=== PATIENT | female | born 1970 | race African-American/Black ===

== ENCOUNTER 2017-08-30 01:44 | Inpatient (IN) | payer MEDICAID, OTHER ==
[~2017-08-30] VITALS: Ht 142.2 cm; Wt 103.9 kg
[~2017-08-30 01:44] MED LIST: GABA-529 PO; OLAN5TAB2 PO
[2017-08-30] MEDS ORDERED: LORazepam 2 MG TABLET PO ONE (03:30)
[2017-08-30] MEDS ORDERED: OLANZapine 5 MG TABLET PO ONE (03:30)
[2017-08-30] MEDS ORDERED: BACITRACIN 0.9 GM PACKET OINTMENT TP ONE (03:30)
[2017-08-30 04:17] LABS: AMPHET/METH SCREEN,URINE POSITIVE (NEGATIVE); BARBITURATE SCREEN, URINE NEGATIVE (NEGATIVE); BENZODIAZEPINES SCREEN,URINE NEGATIVE (NEGATIVE); CANNABINOID SCREEN,URINE POSITIVE (NEGATIVE); COCAINE SCREEN,URINE NEGATIVE (NEGATIVE); METHADONE SCREEN, URINE NEGATIVE (NEGATIVE); OPIATE SCREEN,URINE NEGATIVE (NEGATIVE)
[2017-08-30 04:19] LABS: PHENCYCLIDINE SCREEN,URINE NEGATIVE (NEGATIVE)
[2017-08-30 04:21] LABS: GLUCOSE,POINT OF CARE 95 MG/DL (70-110)
[2017-08-30 04:55] LABS: BASOPHILS # (AUTO) 0.04 K/uL (0.00-0.20); BASOPHILS % (AUTO) 0.5 % (0.0-2.0); EOSINOPHILS # (AUTO) 0.13 K/uL (0.00-0.70); EOSINOPHILS % (AUTO) 1.38 % (1.0-6.0); HEMATOCRIT 41.9 % (36-46); HEMOGLOBIN 13.7 g/dL (12.0-16.0); LYMPHOCYTES # (AUTO) 3.5 K/uL (1.0-4.8); LYMPHOCYTES % (AUTO) 38.2 % (22.0-44.0); MEAN CORPUSCULAR HEMOGLOBIN 29.3 pg (26.0-34.0); MEAN CORPUSCULAR HGB CONC 32.8 G/dL (31.0-37.0); MEAN CORPUSCULAR VOLUME 89 fL (80-100); MONOCYTES # (AUTO) 0.8 K/uL (0.1-1.0); MONOCYTES % (AUTO) 8.5 % (2.0-9.0); NEUTROPHILS # (AUTO) 4.7 K/uL (1.8-7.7); NEUTROPHILS % (AUTO) 51.5 % (40.0-70.0); PLATELET COUNT (AUTO) 217 K/uL (150-450)
[2017-08-30 05:01] LABS: ANION GAP 7 mmol/L (8-16); CARBON DIOXIDE 27 mmol/L (22-29); CHLORIDE 101 mmol/L (98-107); CREATININE 1.04 mg/dL (0.60-1.30); GLOMERULAR FILTR. RATE CALC > 60 mL/min (>60); GLUCOSE,RANDOM 91 mg/dL (70-110); POTASSIUM 3.6 mmol/L (3.5-5.1); SODIUM SERUM 135 mmol/L (136-145); UREA NITROGEN, BLOOD 15 mg/dL (7-18)
[2017-08-30 05:14] LABS: ALANINE AMINOTRANSFERASE 20 U/L (12-78); ALKALINE PHOSPHATASE 77 U/L (46-116); ASPARTATE AMINOTRANSFERASE 17 U/L (15-37); BILIRUBIN,TOTAL 0.5 mg/dL (0.1-1.0); TOTAL PROTEIN, SERUM 8.2 g/dL (6.4-8.2)
[2017-08-30 16:05] VITALS: BP 104/60
[2017-08-30] MEDS: GABAPENTIN 300 MG CAPSULE PO SCH (16:24)
[2017-08-30] MEDS ORDERED: BACITRACIN 28.4 GM OINTMENT TP PRN (17:00)
[2017-08-30] MEDS: LORazepam 2 MG TABLET PO PRN (17:09)
[2017-08-30 20:17] LABS: GLUCOMETER DEV NAME(LOC) BV3S 2; GLUCOSE,POINT OF CARE 92 MG/DL (70-110)
[2017-08-31 05:57] VITALS: BP 118/62
[2017-08-31 08:23] VITALS: BP 115/88
[2017-08-31] MEDS: GABAPENTIN 300 MG CAPSULE PO SCH ×3 (08:35→16:14)
[2017-08-31 08:50] LABS: CHOL/HDL RATIO 2.8 (3.9-5.7)
[2017-08-31] MEDS: LORazepam 2 MG TABLET PO PRN (12:31)
[2017-08-31 16:05] VITALS: BP 117/74
[2017-08-31] MEDS: RIVAROXABAN 20 MG TABLET PO SCH (16:14)
[2017-08-31] MEDS ORDERED: ACETAMINOPHEN 325 MG TABLET PO PRN (17:30)
[2017-08-31 17:33] VITALS: BP 122/64
[2017-08-31] MEDS: IBUPROFEN 600 MG TABLET PO PRN (17:33)
[2017-09-01 03:59] VITALS: BP 116/68
[2017-09-01 08:00] VITALS: BP 130/73
[2017-09-01] MEDS: GABAPENTIN 300 MG CAPSULE PO SCH ×3 (08:55→16:02)
[2017-09-01] MEDS: IBUPROFEN 600 MG TABLET PO PRN (10:30)
[2017-09-01] MEDS: LORazepam 2 MG TABLET PO PRN ×2 (10:30→16:04)
[2017-09-01 10:31] VITALS: BP 138/81
[2017-09-01] MEDS: OLANZapine 5 MG RAPDIS TABLET PO PRN ×2 (10:59→16:04)
[2017-09-01] MEDS ORDERED: DiphenhydrAMINE HCL 50 MG/ML VIAL ONE (11:34)
[2017-09-01] MEDS ORDERED: LORazepam 2 MG/ML VIAL ONE (11:34)
[2017-09-01] MEDS ORDERED: FluPHENAZine HCL 2.5 MG/ML INJ IM ONE ×2 (11:35→11:45)
[2017-09-01] MEDS ORDERED: DiphenhydrAMINE HCL 50 MG/ML VIAL IM ONE (11:45)
[2017-09-01] MEDS ORDERED: LORazepam 2 MG/ML VIAL IM ONE (11:45)
[2017-09-01 12:45] VITALS: BP 126/82
[2017-09-01] MEDS: RIVAROXABAN 20 MG TABLET PO SCH (16:02)
[2017-09-01 16:20] VITALS: BP 106/61
[2017-09-02 04:21] VITALS: BP 114/63
[2017-09-02] MEDS: GABAPENTIN 300 MG CAPSULE PO SCH ×3 (08:12→17:06)
[2017-09-02] MEDS: LORazepam 2 MG TABLET PO PRN ×2 (08:14→17:10)
[2017-09-02 16:07] VITALS: BP 120/77
[2017-09-02] MEDS: RIVAROXABAN 20 MG TABLET PO SCH (17:06)
[2017-09-02] MEDS: ZOLPIDEM TARTRATE 10 MG TABLET PO PRN (21:25)
[2017-09-03 06:41] VITALS: BP 117/71
[2017-09-03] MEDS: GABAPENTIN 300 MG CAPSULE PO SCH ×3 (08:36→16:02)
[2017-09-03] MEDS: LORazepam 2 MG TABLET PO PRN ×2 (08:40→16:02)
[2017-09-03] MEDS: RIVAROXABAN 20 MG TABLET PO SCH (16:02)
[2017-09-03 16:06] VITALS: BP 107/61
[2017-09-04] MEDS: GABAPENTIN 300 MG CAPSULE PO SCH ×3 (08:31→16:51)
[2017-09-04] MEDS: LORazepam 2 MG TABLET PO PRN ×2 (08:31→16:51)
[2017-09-04 08:43] VITALS: BP 127/80
[2017-09-04] MEDS: OLANZapine 5 MG TABLET PO SCH ×2 (09:05→20:17)
[2017-09-04 16:38] VITALS: BP 109/70
[2017-09-04] MEDS: RIVAROXABAN 20 MG TABLET PO SCH (16:51)
[2017-09-04] MEDS: ZOLPIDEM TARTRATE 10 MG TABLET PO PRN (20:19)
[2017-09-05 00:34] VITALS: BP 114/63
[2017-09-05] MEDS: LORazepam 2 MG TABLET PO PRN (08:28)
[2017-09-05] MEDS: GABAPENTIN 300 MG CAPSULE PO SCH ×2 (08:28→12:33)
[2017-09-05] MEDS: OLANZapine 5 MG TABLET PO SCH (08:28)
[2017-09-05 08:34] VITALS: BP 104/51
[2017-09-05] MEDS ORDERED: RIVA20TA PO (10:20)
== END 2017-09-05 13:30 | disposition home or self-care (01) | DRG 750 ==
LOC: EMS 01:45 → B3A 04:00
DX: F25.0 Schizoaffective disorder, bipolar type (principal); E87.1 Hypo-osmolality and hyponatremia; E11.9 Type 2 diabetes mellitus without complications; F15.10 Other stimulant abuse, uncomplicated; F17.200 Nicotine dependence, unspecified, uncomplicated; S41.112A Laceration without foreign body of left upper arm, initial encounter; Z86.718 Personal history of other venous thrombosis and embolism; Z90.710 Acquired absence of both cervix and uterus; X78.8XXA Intentional self-harm by other sharp object, initial encounter; Y93.89 Activity, other specified; Y92.89 Other specified places as the place of occurrence of the external cause; Y99.8 Other external cause status; Z71.51 Drug abuse counseling and surveillance of drug abuser
CPT/HCPCS: 82962; 99285; G0480; J1200; J2060; J3490